=== PATIENT | female | born 1985 | race Caucasian/White ===

== ENCOUNTER → 2017-02-23 | Outpatient (CLI) | payer OTHER ==
[2017-02-23 13:04] LABS: CH 28.4; CHCM 31.8; HCT 41.8 % (34.0-46.0); HDW 2.26; HGB 13.5 gm/dL (11.4-16.0); MCHC 32.3 g/dL (31.0-37.0); MCV 89.7 fL (80.0-100.0); Mean Platelet Volume 7.7; RBC 4.66 m/uL (3.80-5.40); RDW 13.8 % (11.5-15.5)
== END | disposition home or self-care (01) ==
LOC: LABWHC1 12:08
PROVIDERS: ATTEND Obstetrics & Gynecology
DX: N93.8 Other specified abnormal uterine and vaginal bleeding (principal)
CPT/HCPCS: 36415; 84443; 85027

== ENCOUNTER 2018-09-21 18:22 | Emergency (ER) | payer BC, OTHER ==
[2018-09-21] MEDS ORDERED: SODIUM CHLORIDE 0.9% 500 ML 500 ML IV ONE (18:38)
[2018-09-21 19:17] LABS: Amorphous Sediment,Urine Rare /hpf; Appearance,Urine Clear (Clear); Bacteria,Urine Rare /hpf; Basophils # (A) 0.1 k/uL (0-0.2); Basophils % (A) 0 %; Bilirubin,Urine Negative (Negative); Blood,Urine Moderate (Negative); Color,Urine Light Yellow; Eosinophils # (A) 0.2 k/uL (0-0.7); Eosinophils % (A) 1 %; Glucose,Urine (UA) Negative (Negative); HCT 38.4 % (34.0-46.0); HGB 12.9 gm/dL (11.4-16.0); Hyaline Casts,Urine 1 /lpf (0-2); Ketones,Urine Negative (Negative); Leukocyte Esterase,Urine Small (Negative); Lymphocytes # (A) 2.3 k/uL (1.0-4.8); Lymphocytes % (A) 17 %; MCH 29.4 pg (25.0-35.0); MCHC 33.6 g/dL (31.0-37.0); MCV 87.4 fL (80.0-100.0); Mean Platelet Volume 7.1; Monocytes # (A) 0.5 k/uL (0-1.0); Monocytes % (A) 4 %; Mucus,Urine Occasional /hpf; Neutrophils # (A) 10.5 k/uL (1.3-7.7); Neutrophils % (A) 77 %; Nitrite,Urine Negative (Negative); Platelet Count 316 k/uL (150-450); Protein,Urine Negative (Negative); RBC,Urine 90 /hpf (0-5); RDW 13.2 % (11.5-15.5); Specific Gravity,Urine 1.005 (1.001-1.035); Squamous Epithelial Cell,Urine 3 /hpf (0-4); Urobilinogen,Urine <2.0 mg/dL (<2.0); WBC 13.6 k/uL (3.8-10.6); WBC,Urine 4 /hpf (0-5)
[2018-09-21 19:20] LABS: HCG,Qualitative Serum Detected
[2018-09-21 19:23] LABS: ALT 13 U/L (9-52); AST 18 U/L (14-36); African American GFR (CKD) >90 (>60 ml/min/1.73 sqM); Albumin 4.4 g/dL (3.5-5.0); Alkaline Phosphatase 67 U/L (38-126); Anion Gap 11 mmol/L; Blood Urea Nitrogen 8 mg/dL (7-17); Calcium 9.6 mg/dL (8.4-10.2); Carbon Dioxide 20 mmol/L (22-30); Chloride 107 mmol/L (98-107); Glucose 93 mg/dL (74-99); Potassium 3.3 mmol/L (3.5-5.1); Sodium 138 mmol/L (137-145); Total Bilirubin 0.2 mg/dL (0.2-1.3); Total Protein 7.5 g/dL (6.3-8.2)
--- NOTE | 2018-09-21 19:47 | ED ---
General Adult HPI <SubhashParker Livier - Last Filed: 09/21/18 20:16> - General Source: patient, RN notes reviewed, old records reviewed Mode of arrival: ambulatory Limitations: no limitations <Bill Le - Last Filed: 09/21/18 20:36> - General Chief complaint: Vaginal Bleeding Stated complaint: 10 week Twin /Vag Bleeding Time Seen by Provider: 09/21/18 18:38 - History of Present Illness Initial comments: 33-year-old female patient currently approximately 10 weeks presents ED with approximately 4 hours of vaginal bleeding without pain. Patient reports that she has bled through approximately 2 pads. Patient denies any abdominal pain any pelvic pain. Patient denies any nausea vomiting diarrhea chest pain or shortness of breath. Denies any other complaints at this time. Systemic: Pt denies fatigue, fever/chills, rash. Pt denies weakness, night sweats, weight loss. Neuro: Pt denies headache, visual disturbances, syncope or pre-syncope. HEENT: Pt denies ocular discharge or irritation, otalgia, rhinorrhea, pharyngitis or notable lymphadenopathy. Cardiopulmonary: Pt denies chest pain, SOB, heart palpitations, dyspnea on exertion. Abdominal/GI: Pt denies abdominal pain, n/v/d. : Pt denies dysuria, burning w/ urination, frequency/urgency. Denies new onset urinary or bowel incontinence. MSK: Pt denies myalgia, loss of strength or function in extremities. Neuro: Pt denies new onset weakness, paresthesias. (Bill Le) - Related Data Home Medications Medication Instructions Recorded Confirmed Pnv,Calcium 72/Iron/Folic Acid 1 tab PO DAILY 12/20/09/21/18 [ Plus Tablet] Previous Rx's Medication Instructions Recorded Cephalexin [Keflex] 500 mg PO Q12HR 7 Days #14 cap 09/21/18 Allergies Allergy/AdvReac Type Severity Reaction Status Date / Time adhesive tape Allergy Rash/Hives Verified 09/21/18 18:57 Iodinated Contrast- Oral and Allergy Rash/Hives Verified 09/21/18 18:57 IV Dye [Iodinated Contrast Media - IV Dye] iodine Allergy Rash/Hives Verified 09/21/18 18:57 Penicillins Allergy Rash/Hives Verified 09/21/18 18:57 tramadol Allergy Nausea & Verified 09/21/18 18:57 Vomiting Review of Systems ROS Other: All systems not noted in ROS Statement are negative. <Parker Cullen - Last Filed: 09/21/18 20:16> ROS Other: All systems not noted in ROS Statement are negative. <Bill Le - Last Filed: 09/21/18 20:36> ROS Statement: Those systems with pertinent positive or pertinent negative responses have been documented in the HPI. Past Medical History Past Medical History: Asthma Additional Past Medical History / Comment(s): Currently 36 weeks , hx of post htn with first History of Any Multi-Drug Resistant Organisms: None Reported Past Surgical History: Adenoidectomy, Orthopedic Surgery, Tonsillectomy Additional Past Surgical History / Comment(s): T&A-2000 Ortho-2009, 2011, right ankle; episiotomy revision, 07/20/2015 Past Anesthesia/Blood Transfusion Reactions: No Reported Reaction Additional Past Anesthesia/Blood Transfusion Reaction / Comment(s): pt reports welts on her back after receiving an epidural. States "it might have been the tape or the solution they used." Past Psychological History: No Psychological Hx Reported Smoking Status: Never smoker Past Alcohol Use History: None Reported Past Drug Use History: None Reported - Past Family History Mother Family Medical History: Hypertension <Bill Le - Last Filed: 09/21/18 20:36> General Exam External exam: Present: normal external exam. Absent: erythema, swelling, lesions, lacerations, ecchymosis Speculum exam: Present: vaginal bleeding (minimal bleeding at this point). Absent: normal speculum exam, erythema, vaginal discharge, cervical discharge, foreign body By manual exam: Present: other (patient has generalized tenderness in vaginal vault, unable to tolerate full bi-manual). Absent: normal by manual exam <Parker Cullen - Last Filed: 09/21/18 20:16> Limitations: no limitations <Bill Le - Last Filed: 09/21/18 20:36> - General Exam Comments Initial Comments: Constitutional: NAD, AOX3, Pt has pleasant affect. HEENT: NC/AT, trachea midline, neck supple, no lymphadenopathy. Posterior pharynx non erythematous, without exudates. External ears appear normal, without discharge. Mucous membranes moist. Eyes PERRLA, EOM intact. There is no scleral icterus. No pallor noted. Cardiopulmonary: RRR, no murmurs, rubs or gallops, no JVD noted. Lungs CTAB in anterior and posterior [place]. No peripheral edema. Abdominal exam: Abdomen soft and non-distended. Abdomen non-tender to palpation in all 4 quadrants. Bowel sounds active in LLQ. No hepatosplenomegaly. No ecchymosis Neuro: CN II-XII grossly intact. No nuchal rigidity. No raccon eyes, no elias sign, no hemotympanum. No cervical spinal tenderness. MSK: No posterior calf tenderness bilaterally, homans sign negative bilaterally. Posterior tibialis and radial pulse +2 bilaterally. Sensation intact in upper and lower extremities. Full active ROM in upper and lower extremities, 5/5 stregnth. (Bill Le) Course Vital Signs 09/21/18 18:34 Temperature 98.3 F Pulse Rate 107 H Respiratory 20 Rate Blood Pressure 137/86 O2 Sat by Pulse 100 Oximetry Medical Decision Making - Lab Data Result diagrams: 09/21/18 19:00 09/21/18 19:00 <Parker Cullen - Last Filed: 09/21/18 20:16> - Lab Data Result diagrams: 09/21/18 19:00 09/21/18 19:00 <Bill Le - Last Filed: 09/21/18 20:36> - Medical Decision Making 33-year-old female patient currently approximately 10 weeks presents ED with approximately 4 hours of vaginal bleeding without pain. Patient reports that she has bled through approximately 2 pads. Patient denies any abdominal pain any pelvic pain. Patient denies any nausea vomiting diarrhea chest pain or shortness of breath. Denies any other complaints at this time. Pt VS within acceptable limits at discharge. Physical exam did notdisplay acute pathology. Laboratory investigations revealed mild leukocytosis of 13.6. CMP non-impressive. UA displayed noted blood cells. 4 white blood cells. Transvaginal a shunt displayed dye chorionic and diamniotic twins administration as above. No definite complicating process. Patient blood type is A+. Patient will be discharged with Keflex for asymptomatic bacteriuria. 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 Patient return to ER if condition worsens. Case discussed with Dr. Alvarado. (Bill Le) - Lab Data Lab Results 09/21/18 09/21/18 09/21/18 Range/Units 19:00 19:00 19:00 WBC (3.8-10.6) k/uL RBC (3.80-5.40) m/uL Hgb (11.4-16.0) gm/dL Hct (34.0-46.0) % MCV (80.0-100.0) fL MCH (25.0-35.0) pg MCHC (31.0-37.0) g/dL RDW (11.5-15.5) % Plt Count (150-450) k/uL Neutrophils % % Lymphocytes % % Monocytes % % Eosinophils % % Basophils % % Neutrophils # (1.3-7.7) k/uL Lymphocytes # (1.0-4.8) k/uL Monocytes # (0-1.0) k/uL Eosinophils # (0-0.7) k/uL Basophils # (0-0.2) k/uL Sodium 138 (137-145) mmol/L Potassium 3.3 L (3.5-5.1) mmol/L Chloride 107 (98-107) mmol/L Carbon Dioxide 20 L (22-30) mmol/L Anion Gap 11 mmol/L BUN 8 (7-17) mg/dL Creatinine 0.46 L (0.52-1.04) mg/dL Est GFR (CKD-EPI)AfAm >90 (>60 ml/min/1.73 sqM) Est GFR (CKD-EPI)NonAf >90 (>60 ml/min/1.73 sqM) Glucose 93 (74-99) mg/dL Calcium 9.6 (8.4-10.2) mg/dL Total Bilirubin 0.2 (0.2-1.3) mg/dL AST 18 (14-36) U/L ALT 13 (9-52) U/L Alkaline Phosphatase 67 (38-126) U/L Total Protein 7.5 (6.3-8.2) g/dL Albumin 4.4 (3.5-5.0) g/dL HCG, Qual Detected Urine Color Light Yellow Urine Appearance Clear (Clear) Urine pH 6.0 (5.0-8.0) Ur Specific [place] 1.005 (1.001-1.035) Urine Protein Negative (Negative) Urine Glucose (UA) Negative (Negative) Urine Ketones Negative (Negative) Urine Blood Moderate H (Negative) Urine Nitrite Negative (Negative) Urine Bilirubin Negative (Negative) Urine Urobilinogen <2.0 (<2.0) mg/dL Ur Leukocyte Esterase Small H (Negative) Urine RBC 90 H (0-5) /hpf Urine WBC 4 (0-5) /hpf Ur Squamous Epith Cells 3 (0-4) /hpf Amorphous Sediment Rare H (None) /hpf Urine Bacteria Rare H (None) /hpf Hyaline Casts 1 (0-2) /lpf Urine Mucus Occasional H (None) /hpf Blood Type A Positive Blood Type Recheck [facility] ONLY 09/21/18 Range/Units 19:00 WBC 13.6 H (3.8-10.6) k/uL RBC 4.40 (3.80-5.40) m/uL Hgb 12.9 (11.4-16.0) gm/dL Hct 38.4 (34.0-46.0) % MCV 87.4 (80.0-100.0) fL MCH 29.4 (25.0-35.0) pg MCHC 33.6 (31.0-37.0) g/dL RDW 13.2 (11.5-15.5) % Plt Count 316 (150-450) k/uL Neutrophils % 77 % Lymphocytes % 17 % Monocytes % 4 % Eosinophils % 1 % Basophils % 0 % Neutrophils # 10.5 H (1.3-7.7) k/uL Lymphocytes # 2.3 (1.0-4.8) k/uL Monocytes # 0.5 (0-1.0) k/uL Eosinophils # 0.2 (0-0.7) k/uL Basophils # 0.1 (0-0.2) k/uL Sodium (137-145) mmol/L Potassium (3.5-5.1) mmol/L Chloride (98-107) mmol/L Carbon Dioxide (22-30) mmol/L Anion Gap mmol/L BUN (7-17) mg/dL Creatinine (0.52-1.04) mg/dL Est GFR (CKD-EPI)AfAm (>60 ml/min/1.73 sqM) Est GFR (CKD-EPI)NonAf (>60 ml/min/1.73 sqM) Glucose (74-99) mg/dL Calcium (8.4-10.2) mg/dL Total Bilirubin (0.2-1.3) mg/dL AST (14-36) U/L ALT (9-52) U/L Alkaline Phosphatase (38-126) U/L Total Protein (6.3-8.2) g/dL Albumin (3.5-5.0) g/dL HCG, Qual Urine Color Urine Appearance (Clear) Urine pH (5.0-8.0) Ur Specific [place] (1.001-1.035) Urine Protein (Negative) Urine Glucose (UA) (Negative) Urine Ketones (Negative) Urine Blood (Negative) Urine Nitrite (Negative) Urine Bilirubin (Negative) Urine Urobilinogen (<2.0) mg/dL Ur Leukocyte Esterase (Negative) Urine RBC (0-5) /hpf Urine WBC (0-5) /hpf Ur Squamous Epith Cells (0-4) /hpf Amorphous Sediment (None) /hpf Urine Bacteria (None) /hpf Hyaline Casts (0-2) /lpf Urine Mucus (None) /hpf Blood Type Blood Type Recheck Disposition <Parker Cullen P - Last Filed: 09/21/18 20:16> Is patient prescribed a controlled substance at d/c from ED?: No <Bill Le - Last Filed: 09/21/18 20:36> Clinical Impression: Threatened , Asymptomatic bacteriuria Disposition: HOME SELF-CARE Condition: Stable Instructions (If sedation given, give patient instructions): Threatened Miscarriage (ED) Additional Instructions: Patient to adhere to previously discussed treatment plan and will take medication(s) as directed. Patient to follow up with PCP in 1-2 days. Patient to return to ED if symptoms do not improve. Take antibiotic as prescribed. Follow up with bundling machine operator tomorrow. Prescriptions: Cephalexin [Keflex] 500 mg PO Q12HR 7 Days #14 cap Referrals: Chuckie Cortez MD [Primary Care Provider] - 1-2 days
--- NOTE | 2018-09-21 20:21 | US ---
EXAMINATION TYPE: US OB <= 14 wk twins DATE OF EXAM: 09/21/2018 COMPARISON: NONE CLINICAL HISTORY: pain. Pain per order. Vaginal bleeding x 1 day. Twin . . EXAM PERFORMED: Transabdominal (TA) EXAM MEASUREMENTS: GESTATIONAL AGE / DATING Physician Established: Not yet established Dates by LMP: (10 weeks/0 day) EDC: 04/19/2019 Dates by First Scan: This is first scan Dates by Current Scan for Baby A: (10 weeks/0 days) EDC: 04/19/2019 Dates by Current Scan for Baby B: (10 weeks/3 days) EDC: 04/16/2019 MATERNAL ANATOMY Uterus: 11.5 x 8.3 x 7.6 cm Right Ovary: not seen Left Ovary: 3.9 x 2.0 x 1.6 cm Post CDS / Adnexa: appears wnl Presence of free fluid: none seen Presence of corpus luteal cyst: Two areas of mixed echogenicity seen left ovary: #1 measures: 2.1 x 1 .5 x 1.2 cm. #2 measures: 1.8 x 1.6 x 1.5 cm. Presence of subchorionic bleed: Hypoechoic area seen measurin.4 x 6.7 x 4.9 cm. Presence of two separate gestational sacs: yes GESTATION / SURVEY TWIN A CRL: 3.11 cm (10wks/0days) Yolk Sac (normal less than 6mm): Not seen Heart Rate: 182 bpm Rhythm: ?Increased heart rate IUP: Viable IUP Nuchal Translucency 10-14wks (normal less than 3mm): 1 mm TWIN B CRL: 3.57 cm (10wks/3days) Yolk Sac (normal less than 6mm): 3 mm Heart Rate: 178 bpm Rhythm: ?Increased heart rate IUP: Viable IUP Nuchal Translucency 10-14wks (normal less than 3mm): 2 mm Date of LMP: 07/13/2018 IMPRESSION: Dichorionic and diamniotic twin gestation as above. No definite complicating process. Amniotic fluid is adequate.
[2018-09-21 20:54] VITALS: BP 112/74; PULSE 97; RESP 18; TEMP 98.2
== END 2018-09-21 20:54 | disposition home or self-care (01) ==
LOC: EC 18:22
DX: O20.0 Threatened abortion (principal); O99.89 Other specified diseases and conditions complicating pregnancy, childbirth and the puerperium; R82.71 Bacteriuria; R31.9 Hematuria, unspecified; O99.111 Other diseases of the blood and blood-forming organs and certain disorders involving the immune mechanism complicating pregnancy, first trimester; D72.829 Elevated white blood cell count, unspecified; Z67.10 Type A blood, Rh positive; Z88.0 Allergy status to penicillin; Z88.5 Allergy status to narcotic agent; Z91.041 Radiographic dye allergy status; Z91.048 Other nonmedicinal substance allergy status; Z3A.10 10 weeks gestation of pregnancy
CPT/HCPCS: 36415; 76801; 76802; 80053; 81001; 84702; 84703; 85025; 86900; 86901; 96360; 96361; 99284

== ENCOUNTER 2019-01-30 12:18 | Outpatient (CLI) | payer BC, OTHER ==
[2019-01-30] MEDS ORDERED: BETAMET ACET-BETAMETH SOD PHOS 6 MG/ML VIAL IM SCH (13:00)
[2019-01-30 14:16] VITALS: BP 124/68; PULSE 98; RESP 18; TEMP 99
--- NOTE | 2019-01-30 18:35 | P.MSEPDOC ---
Presenting Problems - Arrival Data Date of Arrival on Unit: 01/30/19 Time of Arrival on Unit: 12:11 Mode of Transport: Ambulatory - Complaint OB-Reason for Admission/Chief Complaint: NST, Celestone Injection Comment: twin gestation Medical History - Information : 3 Para: 2 Term: 1 : 1 Abortions: Spontaneous or Elective: 0 Number of Living Children: 2 - Gestational Age Gestational Age by NADEEM (wks/days): 28 Weeks and 5 Days - History Complications: Multiple Review of Systems - Review of Systems Constitutional: No problems Breast: No problems ENT: No problems Cardiovascular: No problems Respiratory: No problems Gastrointestinal: No problems Genitourinary: No problems Musculoskeletal: No problems Neurological: No problems Skin: No problems Comment: twin gestation Vital Signs - Temperature Temperature: 99.0 F Temperature Source: Temporal Artery Scan - Pulse Right Brachial Pulse Rate: 98 Pulse Assessment Method: Automatic Cuff - Respirations Respiratory Rate: 18 Oxygen Delivery Method: Room Air O2 Sat by Pulse Oximetry: 99 - Blood Pressure Right Arm Blood Pressure: 124/68 Blood Pressure Mean: 86 Blood Pressure Source: Automatic Cuff Medical Screen Scoring (Pre) - Cervical Exam Dilation: Exam Deferred Effacement: Exam Deferred Membranes: Intact - Uterine Contractions Frequency: N/A Duration: N/A Intensity: N/A - Maternal Vital Signs Maternal Temperature: N/A Maternal Blood Pressure: N/A Signs of Preeclampsia: 3+ edema of dependent extremities = 2 Maternal Respirations: N/A - Maternal Trauma Maternal Trauma: N/A - Assessment - Baby A Baseline FHR: 140 Heart Rate - NICHD Category: Category I (Normal) = 0 NST: Reactive Position: N/A Station: N/A - Assessment - Baby B Baseline FHR: 150 Heart Rate - NICHD Category: Category I (Normal) = 0 NST: Reactive Position: N/A Station: N/A - Total Score - Baby A Total Score - Baby A: 2 - Total Score - Baby B Total Score - Baby B: 2 - Total Score - Baby C Total Score - Baby C: 2 - Level of Risk - Baby A Level of Risk - Baby A: Low (0-5) - Level of Risk - Baby B Level of Risk - Baby B: Low (0-5) - Level of Risk - Baby C Level of Risk - Baby C: Low (0-5) Physician Notification (Pre) - Physician Notified Spoke With: trudy New Order Received: Yes - Notification Comment Comment: discharge home to return tomorrow for repeat celestone injection. Disposition - Disposition OB Disposition: Discharge to home Discharge Date: 01/30/19 Discharge Time: 13:25 I agree with the RN Medical Screening Exam: Yes Risk & Benefit of care provided described in d/c instruction: Yes Diagnosis: TWIN , DICHORIONIC/DIAMNIOTIC, THIRD TRIMESTER
== END 2019-01-30 13:25 | disposition home or self-care (01) ==
LOC: FBPOP 12:18
PROVIDERS: ATTEND Obstetrics & Gynecology
DX: O30.043 Twin pregnancy, dichorionic/diamniotic, third trimester (principal); Z3A.28 28 weeks gestation of pregnancy
CPT/HCPCS: 59025; 99213; 96372; J0702

== ENCOUNTER 2019-01-31 14:44 | Outpatient (CLI) | payer BC, OTHER ==
[2019-01-31] MEDS ORDERED: BETAMET ACET-BETAMETH SOD PHOS 6 MG/ML VIAL IM ONE (15:21)
[2019-01-31 16:29] LABS: Anisocytosis Slight; Basophils # (A) 0.1 k/uL (0-0.2); Basophils % (A) 1 %; Eosinophils % (A) 0 %; HCT 27.9 % (34.0-46.0); HGB 8.9 gm/dL (11.4-16.0); Lymphocytes # (A) 1.6 k/uL (1.0-4.8); Lymphocytes % (A) 8 %; MCH 28.1 pg (25.0-35.0); MCHC 31.9 g/dL (31.0-37.0); Mean Platelet Volume 7.6; Monocytes % (A) 5 %; Neutrophils # (A) 16.2 k/uL (1.3-7.7); Neutrophils % (A) 84 %; Platelet Count 305 k/uL (150-450); RBC 3.17 m/uL (3.80-5.40); RDW 17.5 % (11.5-15.5); WBC 19.4 k/uL (3.8-10.6)
[2019-01-31 16:37] LABS: ALT 12 U/L (9-52); AST 18 U/L (14-36); African American GFR (CKD) >90 (>60 ml/min/1.73 sqM); Blood Urea Nitrogen 4 mg/dL (7-17); LDH 363 U/L (313-618); Uric Acid 4.2 mg/dL (3.7-7.4)
[2019-01-31 17:53] VITALS: BP 146/67; RESP 15; TEMP 98.2
[2019-01-31 17:55] VITALS: PULSE 98
[2019-01-31 21:18] LABS: Appearance,Urine Cloudy (Clear); Bacteria,Urine Many /hpf; Bilirubin,Urine Negative (Negative); Blood,Urine Negative (Negative); Color,Urine Light Yellow; Glucose,Urine (UA) Negative (Negative); Ketones,Urine Trace (Negative); Leukocyte Esterase,Urine Large (Negative); Mucus,Urine Rare /hpf; Nitrite,Urine Negative (Negative); Protein,Urine Negative (Negative); RBC,Urine 7 /hpf (0-5); Specific Gravity,Urine 1.006 (1.001-1.035); Squamous Epithelial Cell,Urine 5 /hpf (0-4); Urobilinogen,Urine <2.0 mg/dL (<2.0); WBC,Urine 3 /hpf (0-5)
--- NOTE | 2019-02-14 03:46 | P.MSEPDOC ---
Presenting Problems - Arrival Data Date of Arrival on Unit: 01/31/19 Time of Arrival on Unit: 15:03 Mode of Transport: Ambulatory - Complaint OB-Reason for Admission/Chief Complaint: Other Comment: Here for second dose of celestone injection. Medical History - Information : 3 Para: 2 Term: 2 : 0 Abortions: Spontaneous or Elective: 0 Number of Living Children: 2 - Gestational Age Gestational Age by NADEEM (wks/days): 28 Weeks and 6 Days - History Complications: Multiple Review of Systems - Review of Systems Constitutional: No problems Breast: No problems ENT: No problems Cardiovascular: No problems Respiratory: No problems Gastrointestinal: No problems Genitourinary: No problems Musculoskeletal: No problems Neurological: No problems Skin: No problems Vital Signs - Temperature Temperature: 98.2 F Temperature Source: Oral - Pulse Pulse Oximetery Pulse Rate: 98 Pulse Assessment Method: Pulse Oximetry - Respirations Respiratory Rate: 15 Oxygen Delivery Method: Room Air O2 Sat by Pulse Oximetry: 98 - Blood Pressure Right Arm Blood Pressure: 146/67 Blood Pressure Mean: 93 Blood Pressure Source: Automatic Cuff Medical Screen Scoring (Pre) - Cervical Exam Dilation: Exam Deferred Effacement: Exam Deferred Membranes: Intact - Uterine Contractions Frequency: N/A Duration: N/A Intensity: N/A - Maternal Vital Signs Maternal Temperature: N/A Maternal Blood Pressure: Systolic >139 = 2 Signs of Preeclampsia: N/A Maternal Respirations: N/A - Maternal Trauma Maternal Trauma: N/A - Assessment - Baby A Baseline FHR: 145 Heart Rate - NICHD Category: Category I (Normal) = 0 NST: Reactive Position: N/A Station: N/A - Total Score - Baby A Total Score - Baby A: 2 - Total Score - Baby B Total Score - Baby B: 2 - Total Score - Baby C Total Score - Baby C: 2 - Level of Risk - Baby A Level of Risk - Baby A: Low (0-5) - Level of Risk - Baby B Level of Risk - Baby B: Low (0-5) - Level of Risk - Baby C Level of Risk - Baby C: Low (0-5) Physician Notification (Pre) - Physician Notified Physician Notified Date: 01/31/19 Physician Notified Time: 15:45 Physician/Practitioner Notifed:: Dr. Bejarano Spoke With: Dr. Darci Alas Order Received: Yes - Notification Comment Comment: Notified Dr. Carbone of pt here for second dose of celestone and had been in to see Dr. Castro in office yesterday and was checked and at that time was 1cm 60%. Notified pt felt few contractions today but currently is not feeling any. No other complaints at this time. Medical Screen Scoring (Post) - Pain Assessment Pain Scale Used: Numeric (1 - 10) Pain Intensity: 0 Pain Management Goal: 2 Physician Notification (Post) - Physician Notified Physician Notified Date: 01/31/19 Physician Notified Time: 16:45 Physician/Practitioner Notified:: Dr. Bejarano Spoke With: Dr. Darci Alas Order Received: Yes - Notification Comment Comment: Orders received to send pt home. Disposition - Disposition OB Disposition: Discharge to home Discharge Date: 01/31/19 Discharge Time: 16:59 I agree with the RN Medical Screening Exam: Yes Risk & Benefit of care provided described in d/c instruction: Yes Diagnosis: LABOR WITHOUT DELIVERY, THIRD TRIMESTER
== END 2019-01-31 16:45 | disposition home or self-care (01) ==
LOC: FBPOP 14:44
PROVIDERS: ATTEND Obstetrics & Gynecology
DX: O60.03 Preterm labor without delivery, third trimester (principal); Z3A.28 28 weeks gestation of pregnancy
CPT/HCPCS: 59025; 99215; 96372; 82570; 84156; 82565; 83615; 84450; 84460; 84520; 84550; 85025; 81001; J0702

== ENCOUNTER 2019-02-16 14:44 | Inpatient (IN) | payer BC, OTHER ==
[2019-02-16] MEDS ORDERED: MAGNESIUM SULFATE GM 6 GM in SODIUM CHLORIDE 0.9% 100 ML IVPB ONE (16:49)
[2019-02-16] MEDS ORDERED: AZITHROMYCIN 500 MG in SODIUM CHLORIDE 0.9% 250 ML IVPB STA (16:51)
[2019-02-16] MEDS ORDERED: CLINDAMYCIN 900 MG in DEXTROSE 5% IN WATER 50 ML IVPB STA ×2 (16:51)
[2019-02-16] MEDS ORDERED: MAGNESIUM SULFATE-WATER PMX 20 GM in WATER FOR INJECTION 1 500ML.BAG IV SCH (17:00)
[2019-02-16] MEDS ORDERED: BETAMET ACET-BETAMETH SOD PHOS 6 MG/ML VIAL IM SCH (17:00)
--- NOTE | 2019-02-16 17:16 | US ---
EXAMINATION TYPE: US OB >= 14 wk twins DATE OF EXAM: 02/16/2019 COMPARISON: US CLINICAL HISTORY: vaginal bleeding and questional rupture. GESTATIONAL AGE / DATING Physician Established: (31 weeks/1 days) EDC: 04/19/2019 Dates by LMP: (31 weeks/1 days) EDC: 04/19/2019 Dates by Current Scan for Baby A: (31 weeks/2 days) EDC: 04/18/2019 Dates by Current Scan for Baby B: (31 weeks/5 days) EDC: 04/15/2019 GENERAL TWIN SURVEY TWIN A LOCATION in regards to maternal abd: breech TWIN B LOCATION in regards to maternal abd: vertex MEMBRANE SEEN: yes CERVICAL LENGTH (transabdominal; norm > 3.0cm): not seen cm TWIN A: SURVEY/BIOMETRY PLACENTA: Anterior PREVIA: No previa ANA MARÍA:? 5.0 cm?Oligohydramnios PRESENTATION: Breech BPD: 8.0 cm 32 weeks / 1 days HC: 28.9 cm 31 weeks / 5 days AC: 27.5 cm 31 weeks / 4 days FL: 6.0 cm 31 weeks / 2 days ESTIMATED WEIGHT IN GRAMS: 1787 grams ESTIMATED WEIGHT IN LBS/OZS: 3 lbs. 15 oz. WEIGHT PERCENTAGE BASED ON ESTABLISHED DATES: 51% HC/AC: 1.05 Normal FL/AC: 21.9 Normal HEART RATE: 160 bpm RHYTHM: Normal TWIN B: SURVEY/BIOMETRY PRESENTATION: Vertex BPD: 8.1 cm 32 weeks / 4 days HC: 28.9 cm 31 weeks / 5 days AC: 28.7 cm 32 weeks / 5 days FL: 6.1 cm 31 weeks / 5 days ESTIMATED WEIGHT IN GRAMS: 1954 grams ESTIMATED WEIGHT IN LBS/OZS: 4 lbs. 5 oz. WEIGHT PERCENTAGE BASED ON ESTABLISHED DATES: 78% HC/AC: 1.0 Normal FL/AC: 21.3 Normal HEART RATE: 160 bpm RHYTHM: Normal Dr Castro present for part of exam, she is aware of low fluid in baby A. IMPRESSION: Fetus a has amniotic fluid index of 5 cm and fetus B has amniotic fluid index of 12 cm. T here is some mild oligohydramnios of fetus a. Fetus a is smaller than fetus B. I do not see significa nt IUGR.
[2019-02-16] MEDS ORDERED: VANCOMYCIN 2,000 MG in SODIUM CHLORIDE 0.9% 500 ML 500 ML IVPB STA (17:42)
[2019-02-16] MEDS ORDERED: LIDOCAINE 1% 20 ML VIAL (10MG/ML) FOR IV START INTRADERMA PRN (17:49)
[2019-02-16] MEDS ORDERED: LACTATED RINGERS 1,000 ML IV ONE (17:49)
[2019-02-16] MEDS ORDERED: CITRIC ACID-SODIUM CITRATE 15 ML CUP PO ONE (17:49)
[2019-02-16] MEDS ORDERED: OXYTOCIN 10 UNIT/ML 1 ML VIAL ONE (17:55)
[2019-02-16] MEDS ORDERED: MORPHINE SULFATE (PF) 0.3 MG/0.3 ML SYR ONE (17:55)
[2019-02-16] MEDS ORDERED: ONDANSETRON 4 MG/2 ML VIAL ONE (17:55)
--- NOTE | 2019-02-16 17:58 | P.HPOB ---
History of Present Illness H&P Date: 02/16/19 Chief Complaint: Vaginal bleeding This is a 33-year-old female 3 para 2 with an estimated date of confinement of 04/19/2019, estimated gestational age of 31 and one sevenths weeks, with twin gestation, who presents to labor and delivery with complaints of some bright red bleeding this afternoon. She states she did feel that she wet her pants at approximate 12:30 today and then later on did start to notice some bright red bleeding. She has felt irregular contractions but nothing strong today. She was dilated initially at 28 weeks and was given 2 doses of Celestone at that time. Upon arrival to triage here, amnisure is positive and she does have some bright red bleeding on the glove with checking. She initially is noted to be 3-4 cm with what feels like a foot or hand as a presenting part. Ultrasound was performed and baby A is in the breech presentat ion with the fluid level of 5 and baby B is in a vertex presentation with a fluid level of 12. Estimated weight on baby A is 3 lbs. 15 oz. and baby B is 4 lbs. 5 oz. Patient's has also been complicated by anemia for which she is getting iron infusions. She has been followed closely with maternal medicine. In addition she has lymphocytic colitis and has been having flareups of diarrhea cause of this. labs: Hepatitis B surface antigen-negative RPR-nonreactive Rubella-immune Blood type-A+ Antibody screen-negative HIV-nonreactive Hemoglobin-12.8 Toxoplasma screen-negative Random glucose-80 Maternity 2020-negative Obstetrical history: . History of 2 vaginal deliveries the first was at 39 weeks and she did have hypertension after delivery that required medication for about 2 months after delivery. Her second was delivered at 36 weeks' with threatened premature labor. 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 She is . Review of Systems Constitutional: Denies chills, Denies fever Eyes: denies blurred vision, denies pain Ears, nose, mouth and throat: Denies headache, Denies sore throat Cardiovascular: Denies chest pain, Denies shortness of breath Respiratory: Denies cough Gastrointestinal: Reports abdominal pain (Irregular contractions), Reports diarrhea Genitourinary: Reports pelvic pain, Reports Musculoskeletal: Reports low back pain Past Medical History Past Medical History: Asthma Additional Past Medical History / Comment(s): Lymphocytic colitis History of Any Multi-Drug Resistant Organisms: None Reported Past Surgical History: Adenoidectomy, Orthopedic Surgery, Tonsillectomy Additional Past Surgical History / Comment(s): T&A-2000 Ortho-2009, 2012, right ankle; episiotomy revision, 07/20/2015 Past Anesthesia/Blood Transfusion Reactions: No Reported Reaction Additional Past Anesthesia/Blood Transfusion Reaction / Comment(s): pt reports welts on her back after receiving an epidural. States "it might have been the tape or the solution they used." Smoking Status: Never smoker Past Alcohol Use History: None Reported Past Drug Use History: None Reported - Past Family History Mother Family Medical History: Hypertension Medications and Allergies Home Medications Medication Instructions Recorded Confirmed Type Pnv,Calcium 72/Iron/Folic Acid 1 tab PO DAILY 12/21/15 02/16/19 History [ Plus Tablet] Allergies Allergy/AdvReac Type Severity Reaction Status Date / Time adhesive tape Allergy Rash/Hives Verified 02/16/19 15:15 fentanyl Allergy Rash/Hives Verified 02/16/19 15:15 Iodinated Contrast Media Allergy Rash/Hives Verified 02/16/19 15:15 [Iodinated Contrast Media - IV Dye] iodine Allergy Rash/Hives Verified 02/16/19 15:15 Penicillins Allergy Rash/Hives Verified 02/16/19 15:15 tramadol Allergy Nausea & Verified 02/16/19 15:15 Vomiting Exam Osteopathic Statement: *. No significant issues noted on an osteopathic structural exam other than those noted in the History and Physical/Consult. Intake and Output 02/16/19 02/16/19 02/16/19 06:59 14:59 22:59 Other: Weight 86.183 kg HEENT: Within normal limits Heart: Regular rate and rhythm Lungs: Clear to auscultation bilaterally Abdomen: Cervix: Initially was 3-4 cm but currently is 5-6 cm 80% and -2 station heart tones are reactive on both babies Contractions were initially seven-day minutes but currently are every couple minutes Extremities: Negative Homans Assessment and Plan (1) Twin gestation in third trimester Current Visit: Yes Status: Acute Code(s): O30.003 - TWIN PREG, UNSP NUM PLCNTA & AMNIO SACS, THIRD TRIMESTER SNOMED Code(s): 09673123 (2) 31 weeks gestation of Current Visit: Yes Status: Acute Code(s): Z3A.31 - 31 WEEKS GESTATION OF SNOMED Code(s): 54197428 (3) labor in third trimester with delivery Current Visit: Yes Status: Acute Code(s): O60.14X0 - LABOR THIRD TRI W DELIVERY THIRD TRI, UNSP SNOMED Code(s): 54757908055569910 Plan: Admission for imminent delivery. Urgent primary section. Antibiotics have been given along with magnesium sulfate and Celestone. Patient is aware that [facility] after delivery.
[2019-02-16] MEDS ORDERED: diphenhydrAMINE 50 MG/ML 1 ML VIAL IVP PRN ×2 (18:32→18:57)
[2019-02-16] MEDS ORDERED: ONDANSETRON 4 MG/2 ML VIAL IVP PRN ×2 (18:32→18:57)
[2019-02-16] MEDS ORDERED: NALBUPHINE 10 MG/ML (1 ML AMP) IV PRN (18:32)
[2019-02-16] MEDS ORDERED: NALOXONE 0.4 MG/ML 1 ML VIAL IV PRN (18:32)
[2019-02-16] MEDS ORDERED: KETOROLAC 30 MG/ML 1 ML VIAL IVP PRN (18:32)
[2019-02-16] MEDS ORDERED: HYDROmorphone 0.5 MG/0.5 ML SYRINGE IVP PRN (18:32)
[2019-02-16] MEDS ORDERED: METOCLOPRAMIDE 5 MG/ML 2 ML VIAL IVP PRN (18:57)
[2019-02-16] MEDS ORDERED: SIMETHICONE 80 MG CHEWABLE PO PRN (18:57)
[2019-02-16] MEDS ORDERED: LANOLIN CREAM 5 GM TUBE TOPICAL PRN (18:57)
[2019-02-16] MEDS ORDERED: diphenhydrAMINE 50 MG CAP PO PRN (18:57)
[2019-02-16] MEDS ORDERED: diphenhydrAMINE 25 MG CAP PO PRN (18:57)
[2019-02-16] MEDS ORDERED: ZOLPIDEM 5 MG TAB PO PRN (18:57)
[2019-02-16] MEDS ORDERED: HYDROcodone/APAP 5-325MG 1 EACH TAB PO PRN (18:57)
--- NOTE | 2019-02-16 18:58 | P.OP ---
Date of Procedure: 02/16/19 Preoperative Diagnosis: 1. Twin gestation at 31 and one sevenths weeks 2. labor. 3. Spontaneous rupture of membranes. Postoperative Diagnosis: Same Procedure(s) Performed: Primary low transverse section Anesthesia: spinal (Duramorph) Surgeon: Smita Castro Retail Assistant Manager #1: Walker Bedoya Estimated Blood Loss (ml): 600 Pathology: other (Placentas) Condition: stable Disposition: floor Indications for Procedure: This is a 33-year-old female 3 para 2 at 31 and one sevenths weeks who presented to triage complaining of some vaginal bleeding. She denied feeling any strong contractions. She also gave a history of some leakage of what she thought was urine approximate 4 hours prior to arrival. She was found to be ruptured with spontaneous rupture of membranes with clear fluid noted and baby in the breech presentation. Her initial exam was 3-4 cm. Within an hour she may change to 5-6 cm. She is therefore presenting for urgent primary section for twin gestation in active labor. Operative Findings: Baby A is a viable male infant in the magdalene breech presentation with scores of 6 at 1 minute and 8 at 5 minutes and weight of 4 pounds 2.1 ounces. Baby B is a viable male infant in the vertex presentation with scores of 6 at 1 minute and 9 at 5 minutes and weight of 3 pounds 9.5 ounces. Normal uterus tubes and ovaries are noted. Baby A had clear fluid. Baby B had meconium-stained fluid. Description of Procedure: The patient is taken to the operating room where she is placed in the dorsal supine position with leftward tilt after spinal Duramorph anesthesia is given. She is prepped and draped in the normal sterile fashion. Skin was tested and found to be adequately anesthetized. A Pfannenstiel skin incision was made with a scalpel. A second knife was used to carry the incision down to the underlying layer of fascia. The fascia was nicked in the midline with a scalpel and then extended laterally bilaterally with Campbell scissors. The anterior lip of the fascia was grasped with 2 Fran clamps and then dissected off the underlying rectus muscle in the midline with Campbell scissors. The inferior aspect of the fascial incision was grasped with 2 Fran clamps and dissected off the underlying rectus muscle and the midline with Campbell scissors. Next the peritoneum layer was tented up with 2 hemostats and then entered sharply with the scalpel. The incision is extended superiorly and inferiorly with Metzenbaum scissors. Next a DeLee retractor is placed. The vesicouterine peritoneum is entered sharply with Metzenbaum scissors and extended laterally bilaterally with Metzenbaum scissors and then the bladder flap is pushed inferiorly. The lower uterine segment is incised in transverse fashion with the scalpel and then bluntly entered with a hemostat. Clear fluid is noted. The incision was then extended laterally bilaterally with 2 fingers. Next the 's buttocks is delivered through the incision. The remainder the infant is easily delivered and nose and mouth are bulb suctioned after delivery. Cord is clamped and cut and infant was taken to level I nursery by nursing staff. Next baby A is palpat ed in the vertex presentation and brought up to the incision. Bag of water is ruptured with a hemostat and meconium fluid is noted. 's head is then delivered through the incision. Nose and mouth are bulb suctioned. With one further push the remainder the is easily delivered and the cord is clamped and cut. is taken to level I nursery by nursing staff. Uterine fundus is gently massaged and placentas are delivered manually. Uterus is exteriorized and cleared of all clots and debris. Uterine incision is closed with 0 Vicryl suture in a running locked fashion. A second layer of 0 Vicryl suture is used in a running fashion for hemostasis. Once adequate hemostasis as assured, the vesicouterine peritoneum is reapproximated with 2-0 Vicryl suture in a running fashion. Posterior cul-de-sac is suctioned of all clots and debris. Uterus is returned to the abdomen. Incision is noted to be hemostatic. Peritoneal layer is closed with 0 Vicryl suture in a running fashion. Muscle layer is reapproximated with 0 Vicryl suture in interrupted fashion. Fascia layer is then closed with 0 PDS suture with 2 sutures meeting in the midline and the knots buried in either side and in the midline. The subcutaneous tissue was then closed with 2-0 Vicryl suture. Skin layer was then closed with diamond. All sponge and needle counts are correct. The patient is taken to recovery room in stable condition.
[2019-02-16] MEDS ORDERED: OXYTOCIN 20 UNITS/1000 ML NS 1,000 ML IV SCH (19:00)
[2019-02-16 19:33] VITALS: BMI 32.5
[2019-02-16] MEDS: LACTATED RINGERS 1,000 ML IV SCH (19:47)
[2019-02-16 20:13] LABS: Anisocytosis Slight; Basophils % (A) 0 %; Eosinophils % (A) 0 %; HCT 32.7 % (34.0-46.0); HGB 10.9 gm/dL (11.4-16.0); Lymphocytes % (A) 15 %; MCH 29.9 pg (25.0-35.0); MCHC 33.4 g/dL (31.0-37.0); MCV 89.5 fL (80.0-100.0); Mean Platelet Volume 7.3; Monocytes # (A) 0.7 k/uL (0-1.0); Monocytes % (A) 6 %; Neutrophils # (A) 9.9 k/uL (1.3-7.7); Neutrophils % (A) 76 %; Platelet Count 240 k/uL (150-450); RBC 3.65 m/uL (3.80-5.40); WBC 12.9 k/uL (3.8-10.6)
[2019-02-16] MEDS: ACETAMINOPHEN TAB 325 MG TAB PO PRN (20:32)
[2019-02-16] MEDS: SENNOSIDES-DOCUSATE SODIUM 1 EACH TAB PO SCH (23:22)
[2019-02-17] MEDS: LACTATED RINGERS 1,000 ML IV SCH ×2 (02:11→22:24)
[2019-02-17] MEDS: ACETAMINOPHEN TAB 325 MG TAB PO PRN (05:23)
[2019-02-17 06:16] LABS: Anisocytosis Slight; Basophils # (A) 0.1 k/uL (0-0.2); Basophils % (A) 0 %; Eosinophils # (A) 0.1 k/uL (0-0.7); Eosinophils % (A) 1 %; HCT 32.8 % (34.0-46.0); HGB 10.7 gm/dL (11.4-16.0); Lymphocytes # (A) 0.9 k/uL (1.0-4.8); Lymphocytes % (A) 5 %; MCH 29.3 pg (25.0-35.0); MCHC 32.7 g/dL (31.0-37.0); MCV 89.6 fL (80.0-100.0); Mean Platelet Volume 7.5; Monocytes # (A) 0.9 k/uL (0-1.0); Monocytes % (A) 4 %; Neutrophils # (A) 18.1 k/uL (1.3-7.7); Neutrophils % (A) 90 %; Platelet Count 229 k/uL (150-450); RBC 3.66 m/uL (3.80-5.40); RDW 17.1 % (11.5-15.5); WBC 20.2 k/uL (3.8-10.6)
--- NOTE | 2019-02-17 08:51 | P.PNOBGPC ---
Subjective - Subjective Principal diagnosis: Status post primary section postoperative day #1 Interval history: Patient is doing well. Her pain is fairly well controlled. Lochia is decreasing. She is passing some flatus but no bowel movement yet. She states her [facility] are doing well at [facility]. Patient reports: Reports appetite normal, Reports voiding normally, Reports pain well controlled, Reports ambulating normally : doing well, transported Objective - Vital Signs Latest vital signs: Vital Signs Temp Pulse Resp BP Pulse Ox 02/17/19 04:00 98.3 F 85 14 103/63 02/17/19 00:00 97.9 F 78 16 114/72 02/16/19 21:00 98.9 F 86 16 125/65 98 02/16/19 20:30 98.4 F 84 14 138/61 100 02/16/19 20:00 90 16 112/72 02/16/19 19:45 89 16 117/71 02/16/19 19:34 97.5 F L 93 16 111/62 100 02/16/19 19:32 100 02/16/19 19:20 86 16 109/65 02/16/19 18:59 83 16 110/62 Intake and Output 02/16/19 02/17/19 02/17/19 22:59 06:59 14:59 Output Total 4100 500 Balance -4100 -500 Output: Urine 500 500 Uretheral (Murray) 100 Estimated Blood Loss 3600 Other: Weight 86.183 kg - Exam Extremities: Present: normal. Absent: tenderness Abdomen: Present: normal appearance, soft (Positive bowel sounds 4). Absent: distention, tenderness Incision: Present: normal, dry, intact. Absent: erythematous Uterus: Present: normal, firm. Absent: tenderness - Labs Labs: Abnormal Lab Results - Last 24 Hours (Table) 02/16/19 02/17/19 Range/Units 17:00 06:01 WBC 12.9 H 20.2 H (3.8-10.6) k/uL RBC 3.65 L 3.66 L (3.80-5.40) m/uL Hgb 10.9 L 10.7 L (11.4-16.0) gm/dL Hct 32.7 L 32.8 L (34.0-46.0) % RDW 17.0 H 17.1 H (11.5-15.5) % Neutrophils # 9.9 H 18.1 H (1.3-7.7) k/uL Lymphocytes # 0.9 L (1.0-4.8) k/uL Assessment and Plan Assessment: Status post primary section postoperative day #1 (1) Twin gestation in third trimester Current Visit: Yes Status: Acute Code(s): O30.003 - TWIN PREG, UNSP NUM PLCNTA & AMNIO SACS, THIRD TRIMESTER SNOMED Code(s): 66934417 (2) 31 weeks gestation of Current Visit: Yes Status: Acute Code(s): Z3A.31 - 31 WEEKS GESTATION OF SNOMED Code(s): 05890979 (3) labor in third trimester with delivery Current Visit: Yes Status: Acute Code(s): O60.14X0 - LABOR THIRD TRI W DELIVERY THIRD TRI, UNSP SNOMED Code(s): 03124653377676642 Plan: We'll continue with postoperative care today. She is advised that she has ibuprofen and [place] ordered for pain control if indicated after her spinal Duramorph wears off. She is currently getting Toradol through her IV. Will advance diet as tolerated after flatus. Patient is encouraged to ambulate.
--- NOTE | 2019-02-17 11:26 | P.PN ---
Progress Note - Text Progress Note Date: 02/17/19 Patient post-op day #1 for a under spinal anesthetic for twin delivery Sitting up, out of bed and doing well. VAS 5/10 No complaints of itching, nausea/vomitting, back pain or headache. Afebrile Skin site from spinal anesthetic is without erythema/irritation. Patient to begin oral pain pills and anticipates discharge to home tomorrow, 02/18/19 Will follow up as indicated.
[2019-02-17] MEDS: IBUPROFEN 600 MG TAB PO PRN ×2 (12:22→22:19)
[2019-02-17] MEDS: SENNOSIDES-DOCUSATE SODIUM 1 EACH TAB PO SCH ×2 (17:07→22:24)
[2019-02-17] MEDS: HYDROcodone/APAP 7.5-325MG 1 EACH TAB PO PRN (18:39)
[2019-02-18] MEDS: HYDROcodone/APAP 7.5-325MG 1 EACH TAB PO PRN (00:25)
--- NOTE | 2019-02-18 07:31 | P.PNOBGPC ---
Subjective - Subjective Patient reports: Reports appetite normal, Reports voiding normally, Reports pain well controlled, Reports ambulating normally [place]: doing well Objective - Vital Signs Latest vital signs: Vital Signs Temp Pulse Resp BP Pulse Ox 02/18/19 00:00 98 F 75 15 98/64 98 02/17/19 16:00 98.2 F 87 16 94/46 97 02/17/19 12:28 97.9 F 79 16 117/73 02/17/19 08:00 97.6 F 79 15 104/49 98 - Exam Lungs: bilateral: normal Chest: Normal S1, Normal S2 Extremities: Present: normal Abdomen: Present: normal appearance, soft. Absent: distention, tenderness Incision: Present: normal, dry, intact Uterus: Present: normal, firm Assessment and Plan Assessment: Post operative day #2. Patient is resting without complaints. She wishes to go so she can see her baby's which were transferred out. Vital signs are stable and she is afebrile. CBC yesterday was reviewed by Dr. Castro. Incision is intact and dry. Patient is ambulating and urinating without difficulty. Plan is to continue routine postoperative care today and discharge home. (1) delivery delivered Current Visit: Yes Status: Acute Code(s): O82 - ENCOUNTER FOR DELIVERY WITHOUT INDICATION SNOMED Code(s): 477396405
--- NOTE | 2019-02-18 07:34 | P.DS ---
Providers Date of admission: 02/16/19 17:37 Expected date of discharge: 02/18/19 Attending physician: Smita Castro Primary care physician: Stated None - Discharge Diagnosis(es) (1) delivery delivered Current Visit: Yes Status: Acute Hospital Course: Please see dictated H&P per Dr. Castro on this patient's admission. In summary this is a pleasant 33-year-old 3 para 2 female 31 weeks with known twin gestation and labor and premature rupture of membranes. Patient underwent a primary low transverse section for viable male infants. Please see dictated operative note. Postoperatively 2 patient's felt be stable for discharge home follow up with Dr. Castro in approximately 1 week. Procedures: Primary low transverse section Patient Condition at Discharge: Good Plan - Discharge Summary New Discharge Prescriptions: New Ibuprofen [Motrin] 600 mg PO Q6HR PRN #60 tab PRN Reason: Mild Pain Or Fever >= 100.5 HYDROcodone/APAP 5-325MG [[place] 5-325] 1 each PO Q4HR PRN #28 tab PRN Reason: Moderate Pain No Action Pnv,Calcium 72/Iron/Folic Acid [ Plus Tablet] 1 tab PO DAILY Discharge Medication List Pnv,Calcium 72/Iron/Folic Acid [ Plus Tablet] 1 tab PO DAILY 12/21/15 [History] HYDROcodone/APAP 5-325MG [[place] 5-325] 1 each PO Q4HR PRN #28 tab 02/17/19 [Rx] Ibuprofen [Motrin] 600 mg PO Q6HR PRN #60 tab 02/17/19 [Rx] Follow up Appointment(s)/Referral(s): Smita Castro DO [Doctor of Osteopathic Medicine] - 1 Week Patient Instructions/Handouts: (DC) Activity/Diet/Wound Care/Special Instructions: Instructions 1. Do not begin any exercise program for 3 weeks. 2. Do not resume sexual relations for 3 weeks or longer if uncomfortable. 3. You may take tub baths or showers at any time. 4. You may use tampons if desired after 3 weeks. 5. Keep the area of episiotomy (stitches) clean and dry. 6. If you are not nursing, wear a good fitting, supportive bra during the day and limit fluid intake for at least 1 week to prevent breast engorgement. 7. Call the office, [phone], within the next week to make appointment for your 6 week checkup if it has not already been made. 8. Report any of the following occurrences to the doctor promptly: a. Heavy, excessive bleeding b. Chills, fever c. Burning or frequency of urination d. Pain or redness and breasts if nursing e. Increasing pain or swelling in episiotomy (stitches). In addition to the above instructions, the following additional should be followed: 1. No heavy lifting or straining (exercising) until after 6 week checkup. 2. Keep abdominal incision clean and dry: You may wear a dressing if more comfortable. 3. Make office appointment for 10 days after going home or as instructed by her doctor. Discharge Disposition: HOME SELF-CARE
[2019-02-18] MEDS: IBUPROFEN 600 MG TAB PO PRN (08:50)
[2019-02-18 08:55] VITALS: BP 110/75; PULSE 78; RESP 17; TEMP 97.4
[2019-02-18] MEDS: SENNOSIDES-DOCUSATE SODIUM 1 EACH TAB PO SCH (08:58)
== END 2019-02-18 09:05 | disposition home or self-care (01) | DRG 788 ==
LOC: FBPOP 14:44 → 4FBP 17:37
PROVIDERS: ADMIT Obstetrics & Gynecology; ATTEND Obstetrics & Gynecology
PROC: 10D00Z1 Extraction of Products of Conception, Low, Open Approach (ICD-10-PCS; principal; 2019-02-16 17:59)
DX: O60.14X1 Preterm labor third trimester with preterm delivery third trimester, fetus 1 (principal); O60.14X2 Preterm labor third trimester with preterm delivery third trimester, fetus 2; O30.043 Twin pregnancy, dichorionic/diamniotic, third trimester; Z37.2 Twins, both liveborn; O77.0 Labor and delivery complicated by meconium in amniotic fluid; O99.02 Anemia complicating childbirth; D64.9 Anemia, unspecified; O99.62 Diseases of the digestive system complicating childbirth; O99.52 Diseases of the respiratory system complicating childbirth; O32.1XX1 Maternal care for breech presentation, fetus 1; J45.909 Unspecified asthma, uncomplicated; K52.832 Lymphocytic colitis; Z3A.31 31 weeks gestation of pregnancy; Z91.041 Radiographic dye allergy status; Z88.5 Allergy status to narcotic agent; Z88.0 Allergy status to penicillin; Z91.048 Other nonmedicinal substance allergy status; Z82.49 Family history of ischemic heart disease and other diseases of the circulatory system
CPT/HCPCS: 59025; 76805; 76810; 84112; 85025; 86850; 86900; 86901; 88307; 99213

== ENCOUNTER → 2019-10-11 | Outpatient (CLI) | payer BC ==
--- NOTE | 2019-10-12 04:12 | MR ---
EXAMINATION TYPE: MR ankle RT wo/w con DATE OF EXAM: 10/11/2019 COMPARISON: 06/17/2012 HISTORY: Rt ankle pain, decreased subtalor ROM, impingement CONTRAST: Standard multiplanar, multisequence MRI departmental protocol utilizing 8 mL intravenous [place] olinium contrast. The ankle mortise is anatomic. There is extensive soft tissue edema in the subcutaneous tissues aroun d the ankle joint. The Achilles tendon is intact. Plantar fascia appears normal. The collateral ligam ents appear intact. Medial and lateral flexor tendons appear intact. There is 7 x 4 mm area of decrea sed signal on the T1 images in the medial aspect of the dome of the talus. This is unchanged in size compared to old MR scan and consistent with a focus of osteochondritis dissecans.. There is slight na rrowing of the ankle joint space. There is some mild spurring of the anterior and posterior malleolus . Subtalar joint appears intact. There is mild subtalar joint effusion. There is a very small ankle j oint effusion. There is no pathologic enhancement. IMPRESSION: Mild osteoarthritic changes in the ankle joint show slight progression compared to old exam. 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 Small ankle joint and subtalar joint effusion unchanged. Subcutaneous edema around the ankle joint unchanged.
== END | disposition home or self-care (01) ==
LOC: RADMRIMAIN 17:54
PROVIDERS: ATTEND Orthopaedic Surgery
DX: M19.071 Primary osteoarthritis, right ankle and foot (principal); M93.271 Osteochondritis dissecans, right ankle and joints of right foot
CPT/HCPCS: 73723; A9585

== ENCOUNTER → 2021-04-17 | Outpatient (CLI) | payer BC ==
--- NOTE | 2021-04-18 15:03 | US ---
EXAMINATION TYPE: US pelvis complete transvag DATE OF EXAM: 04/17/2021 COMPARISON: NONE CLINICAL HISTORY: R10.2 PELVIC PAIN. IUD placed in 2019, for the past 2 months patient had DUB, some RLQ pain but none at time of exam, , TECHNIQUE: TA. Transabdominal sonographic images of the pelvis were acquired. told patient doctor also ordered TV but patient states she would rather not have it since she is cu rrently bleeding. Date of LMP: unknown, bleeding on and off for 2 months EXAM MEASUREMENTS: Uterus: 9.3 x 6.0 x 4.0 cm Endometrial Stripe: 0.3 cm Right Ovary: 2.8 x 1.3 x 2.1 cm Left Ovary: 4.1 x 2.5 x 1.7 cm 1. Uterus: Anteverted wnl 2. Endometrium: wnl, IUD seen 3. Right Ovary: wnl 4. Left Ovary: wnl 5. Bilateral Adnexa: wnl 6. Posterior cul-de-sac: wnl IMPRESSION: 1. Normal pelvic ultrasound. IUD is within the endometrial canal..
== END | disposition home or self-care (01) ==
LOC: RADUSWWP 16:02
PROVIDERS: ATTEND Family Medicine
DX: R10.2 Pelvic and perineal pain (principal); Z97.5 Presence of (intrauterine) contraceptive device
CPT/HCPCS: 76856